=== PATIENT | male | born 1985 | race Caucasian/White ===

== ENCOUNTER 2019-09-14 16:01 | Emergency (ER) | payer OTHER, SELFPAY ==
[2019-09-14 16:09] VITALS: BP 157/87; PULSE 111; RESP 16; TEMP 37.2; O2SAT 97
--- NOTE | 2019-09-14 16:16 | ED.URI ---
HPI - URI/Sore Throat General Chief Complaint: Upper Respiratory Infection Stated Complaint: COLD SYMPTOMS Time Seen by Provider: 09/14/19 16:22 Source: patient and RN notes reviewed Mode of arrival: ambulatory Limitations: no limitations History of Present Illness HPI Narrative: 34-year-old male presents with concern for cough, chest tightness, runny nose for 2 days. Reports a history of asthma. Reports he used his nebulizer 5 times yesterday and has been using his albuterol inhaler today. Reports he has been taking DayQuil and Benadryl. He denies fever, body aches, chills, sweats, malaise. Denies dyspnea MD elicited complaint: cough Related Data Home Medications Medication Instructions Recorded Confirmed albuterol sulfate INHALATION 09/14/19 Allergies Allergy/AdvReac Type Severity Reaction Status Date / Time No Known Allergies Allergy Uncoded 05/23/19 16:22 Review of Systems Review of Systems: Narrative: CONSTITUTIONAL: Denies malaise, chills, sweats, or fever. EYES: Denies visual changes, redness, or discharge. ENT: Reports rhinorrhea, sore throat. Denies congestion, sinus pain, otalgia. CARDIOVASCULAR: Denies chest pain, palpitations, or edema. RESPIRATORY: Reports cough, wheezing, chest congestion. Denies dyspnea. GASTROINTESTINAL: Denies abdominal pain, nausea, vomiting, diarrhea SKIN: Denies rash or itching. MUSCULOSKELETAL: Denies myalgia. NEUROLOGIC: Denies headache. All systems reviewed & are unremarkable except as noted in HPI and below PMFSH Comments At time of signature, agree with nursing past medical, surgical, social and family history. There is no relevant family history pertinent to the presenting complaint Exam Narrative: Exam Narrative: GENERAL: Well-appearing, well-nourished, and in no acute distress. HEAD: Normocephalic EYES: PERRLA, conjunctivae clear ENT: Nares clear, turbinates edematous and erythematous, clear discharge. Mucous membranes moist. TM pearly bose with dull light reflex bilaterally; no tragal tenderness. Oropharynx erythematous without lesions. Tonsils not enlarged and without exudate, no drooling, no hoarseness, no trismus. NECK: Supple. No lymphadenopathy CHEST: Inspiratory and expiratory wheeze throughout, aeration poor to fair, breath sounds equal. No rhonchi, rales, or stridor. No respiratory distress, speaks in full sentences. HEART: Regular rate and rhythm. No murmur heard. Normal peripheral pulses. SKIN: Warm, dry, no rash. NEURO: Alert and oriented x3. PSYCH: Normal mood and affect Course Course Emergency Course: DuoNeb, prednisone 60 mg administered in clinic. Aeration improved, wheezing improved Patient is aware of diagnosis, understands and agrees to treatment plan. Anticipatory guidance given. Patient agrees to follow-up as directed and is aware of reasons to seek care at the emergency department. Portions of this record may have been created with voice recognition software Vital Signs Vital signs: Vital Signs Temperature 99 F 09/14/19 16:09 Pulse Rate 111 H 09/14/19 16:09 Respiratory Rate 16 09/14/19 16:09 Blood Pressure 157/87 H 09/14/19 16:09 Pulse Oximetry 97 09/14/19 16:09 Temperature 99 F 09/14/19 16:09 Pulse Rate 109 H 09/14/19 17:10 Respiratory Rate 20 09/14/19 17:10 Blood Pressure 157/87 H 09/14/19 16:09 Pulse Oximetry 100 09/14/19 17:10 Reviewed. Pt has been instructed to follow up with his primary care provider within the next week regarding his elevated blood pressure today. MDM - URI/Sore Throat MDM Narrative Medical decision making narrative: Differential diagnosis considered: Strep pharyngitis, allergic rhinitis, upper respiratory tract infection, sinusitis, rhinosinusitis, nasopharyngitis. viral pharyngitis, otitis media, otitis externa, pneumonia, bronchitis, viral cough syndrome, viral syndrome, and influenza. Exam findings show no acute concerns or changes; patient is non-toxic appearing and is in no dis
[2019-09-14] MEDS: ALBUTEROL SULFATE NEB 2.5 MG/3 ML INH INHALATION (16:40)
[2019-09-14] MEDS: IPRATROPIUM BR 0.02% INH SOLN 0.5 MG/2.5 ML VIAL INHALATION (16:41)
[2019-09-14] MEDS: predniSONE 20 MG TABLET 60 MG PO (16:44)
[2019-09-14 17:10] VITALS: PULSE 109; RESP 20; O2SAT 100
== END 2019-09-14 17:20 | disposition home or self-care (01) ==
PROVIDERS: Emergency Provider Nurse Practitioner
DX: J45.901 Unspecified asthma with (acute) exacerbation (principal); J06.9 Acute upper respiratory infection, unspecified
CPT/HCPCS: 94640; 99213; G0463; J7512